=== PATIENT | female | born 1975 | race Asian ===

== ENCOUNTER 2017-04-09 06:47 | Inpatient (IN) | payer BC ==
[2017-04-09] VITALS (35 sets, daily range): BP systolic 99–138; BP diastolic 59–101; PULSE 65–158; RESP 0–18; TEMP 97.8–99.9; O2SAT 98
[~2017-04-09] VITALS: Ht 162.6 cm; Wt 63.0 kg
[2017-04-09] MEDS ORDERED: LACTATED RINGER'S 1000 ML INJ 1,000 ML IV PRN (07:28)
[2017-04-09] MEDS ORDERED: LACTATED RINGER'S 1000 ML INJ 1,000 ML IV SCH (07:28)
[2017-04-09] MEDS ORDERED: OXYTOCIN 30 UNITS-500ML PREMIX 500 ML IV ONE (07:30)
[2017-04-09] MEDS ORDERED: MINERAL OIL 10 ML VIAL TOPICAL PRN (07:30)
[2017-04-09] MEDS ORDERED: CITRIC ACID-SODIUM CITRATE LIQ 30 ML UDC PO SCH (07:30)
[2017-04-09] MEDS ORDERED: SODIUM CHLORID 0.9% 500 ML INJ 500 ML IV PRN (07:30)
[2017-04-09] MEDS ORDERED: LIDOCAINE HCL 1% 50 ML VIAL I-DERMAL PRN (07:30)
[2017-04-09] MEDS ORDERED: LIDOCAINE HCL 1% 50 ML VIAL INFIL PRN (07:30)
--- NOTE | 2017-04-09 07:34 | HHI.HP ---
HPI Chief Complaint Water broke and tray Date Seen: Apr 09, 2017 Time Seen: 07:15 Travel History International Travel<30 Days: No Contact w/Intl Traveler<30Days: No Known Affected Area: No History of Present Illness HPI 41-year-old female [address] Khoury presents complaining of her water breaking this morning and the patient contractions began on the way to the hospital. Denies bleeding. heart rate tracing is reactive and she is tray every 3 minutes. Her amnio sure is positive this morning Weeks Gestation: 38 Para: 2 : 3 History Obstetric History Obstetric History 2 vaginal deliveries Social History Alcohol Use: No Tobacco Use: No Substance Abuse: No Allergies-Medications (Allergen,Severity, Reaction): Coded Allergies: No Known Allergies (Unverified , 04/09/17) Review of Systems General / Constitutional: No: Fever, Weight Gain, Chills, Other Eyes: No: Diploplia, Blurred Vision, Visual changes, Pain, Photophobia HENT: No: Headaches, Vertigo, Lightheadedness Cardiovascular: No: Irregular Rhythm, Chest Pain or Discomfort, Palpitations, Tachycardia, Syncope, Varicosities, Edema, Cyanosis Respiratory: No: Cough, Short of Breath, Other Gastrointestinal: No: Nausea, Vomiting, Diarrhea Genitourinary: No: Decreased Urinary Output, Oliguria Musculoskeletal: No: Limited ROM, Weakness, Cramping, Edema, Pain Skin: No Rash, No Itching, No Dryness, No Lumps, No Change in Pigmentation, No Change in Nails, No Alopecia, No Lesions Neurologic: No: Weakness, Dizziness, Syncope, Focal Abnormalities, Coordination Problem, Headache, Slurred Speech, Seizures Psychiatric: No: Depression, Suicidal Ideations, Homicidal Ideation Endocrine: No: Heat Intolerance, Cold Intolerance, Polydipsia, Polyuria, Other Physical Exam Narrative GENERAL: Well-nourished, well-developed patient. SKIN: Warm and dry. HEAD: Normocephalic and atraumatic. EYES: No scleral icterus. No injection or drainage. ENT: No nasal drainage noted. Mucous membranes pink. Airway patent. NECK: Supple, trachea midline. No JVD. CARDIOVASCULAR: Regular rate and rhythm without murmurs, gallops, or rubs. RESPIRATORY: Breath sounds equal bilaterally. No accessory muscle use. BREASTS: Bilateral exam showed no masses , no retractions, no nipple discharge. ABDOMEN/GI: Abdomen soft, non-tender, bowel sounds present, no rebound, no guarding Gravid to [-38] weeks size Fundal Height: [-38] GENITOURINARY: External Genitalia: intact and normal in appearance BUS glands: [-] Cervix: [post-] Dilatation: [-4-5] Effacement: [90-] Station: [-2] Presentation: [vtx-] Membranes: [ ruptured] Uterine Contractions: [q 3 min-] FHT's: Category: [-1] Baseline: [122-] Reactive: [R-] Variability: [-mod] Decels: [-none] EXTREMITIES: No cyanosis or edema. BACK: Nontender without obvious deformity. No CVA tenderness. NEUROLOGICAL: Awake and alert. Motor and sensory grossly within normal limits. Five out of 5 muscle strength in all muscle groups. Normal speech. Caprini VTE Risk Assessment Caprini VTE Risk Assessment: No/Low Risk (score <= 1) Caprini Risk Assessment Model Point Value = 1 Point Value = 2 Point Value = 3 Point Value = 5 Age 41-60 Minor surgery BMI > 25 kg/m2 Swollen legs Varicose veins or History of unexplained or recurrent spontaneous Oral contraceptives or hormone replacement Sepsis (< 1 month) Serious lung disease, including pneumonia (< 1 month) Abnormal pulmonary function Acute myocardial infarction Congestive heart failure (< 1 month) History of inflammatory bowel disease Medical patient at bed rest Age 61-74 Arthroscopic surgery Major open surgery (> 45 min) Laparoscopic surgery (> 45 min) Malignancy Confined to bed (> 72 hours) Immobilizing plaster cast Central venous access Age >= 75 History of VTE Family history of VTE Factor V Leiden Prothrombin [id number] Lupus anticoagulant Anticardiolipin antibodies Elevated serum homocysteine Heparin-induced thrombocytopenia Other congenital or acquired thrombophilia Stroke (< 1 month) Elective arthroplasty Hip, pelvis, or leg fracture Acute spinal cord injury (< 1 month) Prophylaxis Regimen Total Risk Factor Score Risk Level Prophylaxis Regimen 0-1 Low Early ambulation 2 Moderate Order ONE of the following: *Sequential Compression Device (SCD) *Heparin 5000 units SQ BID 3-4 Higher Order ONE of the following medications: *Heparin 5000 units SQ TID *Enoxaparin/Lovenox 40 mg SQ daily (WT < 150 kg, CrCl > 30 mL/min) *Enoxaparin/Lovenox 30 mg SQ daily (WT < 150 kg, CrCl > 10-29 mL/min) *Enoxaparin/Lovenox 30 mg SQ BID (WT < 150 kg, CrCl > 30 mL/min) AND/OR *Sequential Compression Device (SCD) 5 or more Highest Order ONE of the following medications: *Heparin 5000 units SQ TID (Preferred with Epidurals) *Enoxaparin/Lovenox 40 mg SQ daily (WT < 150 kg, CrCl > 30 mL/min) *Enoxaparin/Lovenox 30 mg SQ daily (WT < 150 kg, CrCl > 10-29 mL/min) *Enoxaparin/Lovenox 30 mg SQ BID (WT < 150 kg, CrCl > 30 mL/min) AND *Sequential Compression Device (SCD) Data Data Orders Orders Ob (2e) Additional Admit Info (04/09/17 07:27) Admit To Inpatient (04/09/17 ) Vital Signs (Adult) .Per protocol (04/09/17 07:28) Heart (04/09/17 07:28) Amnioinfusion (04/09/17 07:28) Urinary Catheter Management .ONCE (04/09/17 07:28) Lactated Ringer's 1000 Ml Inj (Lr 1000 M (04/09/17 07:28) Lactated Ringer's 1000 Ml Inj (Lr 1000 M (04/09/17 07:28) Sodium Chlorid 0.9% 500 Ml Inj (Ns 500 M (04/09/17 07:30) Sodium Chlor 0.9% 1000 Ml Inj (Ns 1000 M (04/09/17 07:48) Lidocaine 1% Inj (50 Ml) (Xylocaine 1% I (04/09/17 07:30) Citric Acid-Sodium Citrate Liq (Bicitra (04/09/17 07:30) Fentanyl Inj (Fentanyl Inj) (04/09/17 07:30) Fentanyl Inj (Fentanyl Inj) (04/09/17 07:30) Penicillin G Potassium Inj (Pfizerpen-G (04/09/17 07:30) Penicillin G Potassium Inj (Pfizerpen-G (04/09/17 11:30) Complete Blood Count With Diff (04/09/17 07:28) Hold Clot (04/09/17 07:28) Abo/Rh Blood Type (04/09/17 07:28) Urinalysis - C+S If Indicated (04/09/17 07:28) Drug Screen, Random Urine (04/09/17 07:28) Resp Oxygen Non Rebreathe Mask (04/09/17 ) ^ Epidural / Intrathecal Infus (04/09/17 07:28) Oxytocin 30 Units-500ml Premix (Pitocin (04/09/17 07:30) Lidocaine 1% Inj (50 Ml) (Xylocaine 1% I (04/09/17 07:30) Light Mineral Oil (Muri-Lube Oil) (04/09/17 07:30) Group B Strep: Positive Assessment/Plan Assessment and Plan Patient is 41-year-old female 38 weeks presents with gross ruptured membranes and early labor, cervix 4-5 cm 90% -2 vertex, amnio sure is positive. heart tones are reactive she is tray regularly. Patient sees Dr. Khoury for care and we will notify the [facility] maori liaison adviser physician. Cortez Patel II, MD Apr 09, 2017 07:34
[2017-04-09] MEDS ORDERED: SODIUM CHLOR 0.9% 1000 ML INJ 1,000 ML IV PRN (07:48)
[2017-04-09] MEDS ORDERED: PENICILLIN G POTASSIUM INJ 5,000,000 UNITS in SODIUM CHLORIDE 0.9% INJ 100 ML IV ONE (08:00)
[2017-04-09 08:31] LABS: AUTOMATED NEUTROPHIL # 4.8 TH/MM3 (1.8-7.7); BASOPHIL % 0.7 % (0.0-2.0); EOSINOPHIL # 0.1 TH/MM3 (0-0.4); EOSINOPHIL % 1.8 % (0.0-4.0); HEMATOCRIT 40.3 % (35.0-46.0); LYMPH % 11.2 % (9.0-44.0); LYMPHOCYTE # 0.7 TH/MM3 (1.0-4.8); MEAN CELL VOLUME 91.7 FL (80.0-100.0); MEAN CORPUSCULAR HEMOGLOBIN 31.8 PG (27.0-34.0); MEAN CORPUSCULAR HGB CONC 34.7 % (32.0-36.0); MEAN PLATELET VOLUME 8.9 FL (7.0-11.0); MONO % 6.6 % (0.0-8.0); MONOCYTE # 0.4 TH/MM3 (0-0.9); NEUT % 79.7 % (16.0-70.0); PLATELET COUNT 161 TH/MM3 (150-450); RED BLOOD COUNT 4.39 MIL/MM3 (4.00-5.30); RED CELL DISTRIBUTION WIDTH 14.7 % (11.6-17.2)
[2017-04-09 08:36] LABS: BACTERIA, URINE RARE /hpf; BILIRUBIN, URINE NEG (NEG); BLOOD, URINE TRACE (NEG); GLUCOSE,URINE NEG (NEG); KETONE, URINE NEG (NEG); MUCUS URINE FEW /lpf (OCC); NITRITE,URINE NEG (NEG); SQUAMOUS EPITHELIAL CELL URINE 1 /hpf (0-5); URINE COLOR YELLOW (YELLW/STRAW); URINE LEUKOCYTE ESTERASE NEG (NEG)
[2017-04-09] MEDS ORDERED: fentaNYL 2MCG-BUPIV 0.125% INJ 100 ML ONE (08:55)
[2017-04-09] MEDS ORDERED: ePHEDrine/NS 25 MG/5 ML SYRINGE ONE (08:56)
--- NOTE | 2017-04-09 11:08 | PD.OB.DELI ---
Weeks gestation: 38 Anesthesia: Epidural Episiotomy: None Vaginal Delivery: Normal Presentation: Occiput anterior, Compound (left hand) Nuchal Cord: None Delayed cord clamping (45 sec): Yes : Female Delivery date: Apr 09, 2017 Delivery time: 10:49 One Minute : 8 Five Minute : 9 Placenta: Spontaneous delivery, Intact, 3 vessel cord Laceration: Perineal laceration, 2 deg Repair: Chromic running Estimated blood loss: 100 mL Additional Information uncomplicated delivery of healthy female Ramya Suero MD Apr 09, 2017 11:08
[2017-04-09] MEDS ORDERED: SODIUM CHLORIDE 0.9% FLUSH 10 ML FLUSH IV FLUSH PRN (11:15)
[2017-04-09] MEDS ORDERED: OXYTOCIN 30 UNITS-500ML PREMIX 500 ML IV SCH (11:15)
[2017-04-09] MEDS ORDERED: BENZOCAINE 20% TOPICAL SPRAY 60 ML CAN TOPICAL PRN (11:15)
[2017-04-09] MEDS ORDERED: SODIUM CHLORIDE 0.9% FLUSH 10 ML FLUSH IV FLUSH SCH (11:15)
[2017-04-09] MEDS ORDERED: oxyCODONE/ACETAMINOPHEN 5 MG/325 MG TAB PO PRN ×2 (11:15)
[2017-04-09] MEDS ORDERED: DOCUSATE SODIUM 50 MG/SENNA 8.6 MG TAB PO PRN (11:15)
[2017-04-09] MEDS ORDERED: ONDANSETRON ODT 4 MG TAB PO PRN (11:15)
[2017-04-09] MEDS ORDERED: WITCH HAZEL 50%/GLYCERIN 12.5% 40 PAD JAR TOPICAL PRN (11:15)
[2017-04-09] MEDS ORDERED: ACETAMINOPHEN 325 MG TAB PO PRN (11:15)
[2017-04-09] MEDS ORDERED: IBUPROFEN 800 MG TAB PO PRN (11:15)
[2017-04-09] MEDS ORDERED: ALUMINUM/MAGNESIUM/SIMETH 30 ML CUP PO PRN (11:30)
[2017-04-09] MEDS ORDERED: ePHEDrine/NS 25 MG/5 ML SYRINGE IV PUSH PRN (11:45)
[2017-04-09] MEDS ORDERED: NO SYSTEM NARCOTICS PRN (11:45)
[2017-04-09] MEDS ORDERED: fentaNYL 2MCG-BUPIV 0.125% 100 ML EPIDURAL SCH (11:45)
[2017-04-09] MEDS ORDERED: DO NOT ADMINISTER ANTICOAGULANTS PRN (11:45)
[2017-04-09] MEDS ORDERED: PENICILLIN G POTASSIUM INJ 2,500,000 UNITS in SODIUM CHLORIDE 0.9% INJ 100 ML IV SCH (12:00)
[2017-04-09] MEDS ORDERED: MISOPROSTOL 200 MCG TAB ONE (12:51)
--- NOTE | 2017-04-09 12:56 | HHI.PR ---
Subjective Remarks OBHG The patient is a 41-year-old para 3003 status post at 10:49 AM today. She has had several episodes of uterine hypertonia and increased vaginal bleeding. I was asked by Dr. Casey to assess the patient. Upon entry into the patient's room, I introduced myself and explained the need for further evaluation due to continued bleeding. Per report, the patient has had 3 episodes of bleeding, but continues to bleed more than expected with hypotonic uterus. After obtaining verbal consent from the patient and examination was performed and the lower uterine segment was swept of approximately 200 cc blood and clots. After this point the uterus became firm at U -2. The patient is given 1000 g of Cytotec rectally and Methergine 0.2 mg IM. Discussed with Dr. Suero , will continue Methergine 0.2 mg by mouth every 6 hours 24 hours and check CBC in the a.m. Objective Vital Signs Date Time Temp Pulse Resp B/P (MAP) Pulse Ox O2 Delivery O2 Flow Rate FiO2 04/09/17 12:15 65 116/70 (85) 04/09/17 12:01 81 129/89 (102) 04/09/17 11:45 69 110/76 (87) 04/09/17 11:30 75 112/69 (83) 04/09/17 11:30 16 04/09/17 11:15 98.2 04/09/17 11:15 0 04/09/17 11:15 158 114/78 (90) 04/09/17 11:14 82 126/61 (82) 04/09/17 11:00 91 125/101 (109) 04/09/17 10:30 65 116/73 (87) 04/09/17 10:15 68 109/74 (86) 04/09/17 10:00 73 109/62 (78) 04/09/17 09:45 67 129/74 (92) 04/09/17 09:45 97.8 04/09/17 09:45 67 04/09/17 09:43 68 117/88 (98) 04/09/17 09:40 72 04/09/17 09:36 78 04/09/17 09:35 70 04/09/17 09:31 75 104/65 (78) 04/09/17 09:30 74 04/09/17 09:25 72 113/62 (79) 04/09/17 09:25 70 04/09/17 09:22 69 112/64 (80) 04/09/17 09:20 107 04/09/17 09:20 68 99/82 (88) 04/09/17 09:16 69 113/65 (81) 04/09/17 09:15 79 04/09/17 09:13 76 134/83 (100) 04/09/17 09:10 72 04/09/17 09:07 74 138/80 (99) 04/09/17 09:06 76 04/09/17 07:36 67 138/78 (98) Result Diagram: 04/09/17 0820 Jessy Donohue MD Apr 09, 2017 12:56
[2017-04-09] MEDS ORDERED: MISOPROSTOL 200 MCG TAB RECTAL ONE (13:00)
[2017-04-09] MEDS ORDERED: METHYLERGONOVINE MALEATE 0.2 MG/ML VIAL IM ONE (13:00)
[2017-04-09] MEDS: METHYLERGONOVINE MALEATE 0.2 MG TAB PO SCH ×2 (13:23→18:32)
[2017-04-09] MEDS ORDERED: DIPHTH/TETANUS/ACEL PERTUSSIS (BOOSTER) 0.5 ML VIAL/PFS IM ONE (16:00)
[2017-04-09] MEDS ORDERED: MEASLES, MUMPS, RUBELLA VACCINE 0.5 ML VIAL SQ ONE (16:00)
[2017-04-09] MEDS ORDERED: ZOLPIDEM TARTRATE 5 MG TAB PO PRN (21:00)
[2017-04-10] MEDS: METHYLERGONOVINE MALEATE 0.2 MG TAB PO SCH ×2 (00:54→05:26)
[2017-04-10 05:52] LABS: HEMATOCRIT 35.6 % (35.0-46.0); HEMOGLOBIN 12.3 GM/DL (11.6-15.3); MEAN CELL VOLUME 91.7 FL (80.0-100.0); MEAN CORPUSCULAR HEMOGLOBIN 31.6 PG (27.0-34.0); MEAN CORPUSCULAR HGB CONC 34.4 % (32.0-36.0); MEAN PLATELET VOLUME 8.8 FL (7.0-11.0); PLATELET COUNT 118 TH/MM3 (150-450); RED BLOOD COUNT 3.88 MIL/MM3 (4.00-5.30); RED CELL DISTRIBUTION WIDTH 14.3 % (11.6-17.2); WHITE BLOOD COUNT 10.1 TH/MM3 (4.0-11.0)
[2017-04-10 08:00] VITALS: BP 120/79; PULSE 64; RESP 16; TEMP 97.6; O2SAT 98
--- NOTE | 2017-04-10 08:47 | HHI.OB ---
Subjective Post Day: 1 Remarks misoprostol 1000microgram given yesterday, followed by 24 hours of methergine in progress for pp bleeding. Objective Vitals/I&O Vital Signs Date Time Temp Pulse Resp B/P (MAP) Pulse Ox O2 Delivery O2 Flow Rate FiO2 04/10/17 08:00 64 16 120/79 (93) 04/10/17 08:00 97.6 98 04/09/17 20:00 98.0 76 18 122/65 (84) 98 04/09/17 16:00 99.9 76 18 108/64 (79) 04/09/17 14:30 98.2 04/09/17 14:30 68 18 128/62 (84) 04/09/17 13:29 98.1 04/09/17 13:15 90 137/83 (101) 04/09/17 13:01 69 133/59 (83) 04/09/17 12:45 97 129/82 (98) 04/09/17 12:30 69 120/72 (88) 04/09/17 12:15 65 116/70 (85) 04/09/17 12:01 81 129/89 (102) 04/09/17 11:45 69 110/76 (87) 04/09/17 11:30 75 112/69 (83) 04/09/17 11:30 16 04/09/17 11:15 98.2 04/09/17 11:15 0 04/09/17 11:15 158 114/78 (90) 04/09/17 11:14 82 126/61 (82) 04/09/17 11:00 91 125/101 (109) 04/09/17 10:30 65 116/73 (87) 04/09/17 10:15 68 109/74 (86) 04/09/17 10:00 73 109/62 (78) 04/09/17 09:45 67 129/74 (92) 04/09/17 09:45 97.8 04/09/17 09:45 67 04/09/17 09:43 68 117/88 (98) 04/09/17 09:40 72 04/09/17 09:36 78 04/09/17 09:35 70 04/09/17 09:31 75 104/65 (78) 04/09/17 09:30 74 1/29/18 09:25 72 113/62 (79) 04/09/17 09:25 70 04/09/17 09:22 69 112/64 (80) 04/09/17 09:20 107 04/09/17 09:20 68 99/82 (88) 04/09/17 09:16 69 113/65 (81) 04/09/17 09:15 79 04/09/17 09:13 76 134/83 (100) 04/09/17 09:10 72 04/09/17 09:07 74 138/80 (99) 04/09/17 09:06 76 Objective Remarks GENERAL: Well-nourished, well-developed patient. CARDIOVASCULAR: Regular rate and rhythm without murmurs, gallops, or rubs. RESPIRATORY: Breath sounds equal bilaterally. No accessory muscle use. ABDOMEN/GI: Abdomen soft, non-tender. Fundus: Firm, non-tender at umbilicus. GENITOURINARY: Light to moderate bleeding. EXTREMITIES: No cyanosis or edema, non-tender, without signs of DVT. Medications and IVs Current Medications Medications (Trade) Dose Ordered Sig/Thea Route Start Time Stop Time Status Last Admin (NS Flush) 2 ml BID IV FLUSH 04/09/17 11:15 04/09/17 11:15 (NS Flush) 2 ml UNSCH PRN IV FLUSH 04/09/17 11:15 (Tylenol) 650 mg Q4H PRN PO 04/09/17 11:15 (Motrin) 800 mg Q8H PRN PO 04/09/17 11:15 04/09/17 21:11 (Percocet 5-325 Mg) 1 tab Q4H PRN PO 04/09/17 11:15 (Percocet 5-325 Mg) 2 tab Q4H PRN PO 04/09/17 11:15 (Americaine 20% Top Spr) 1 spray Q4H PRN TOPICAL 04/09/17 11:15 04/09/17 17:56 (Tucks Pads) 1 applic QID PRN TOPICAL 04/09/17 11:15 04/09/17 17:56 (Bonnie-Colace) 2 tab Q12H PRN PO 04/09/17 11:15 (Ambien) 5 mg HS PRN PO 04/09/17 21:00 (Mag-Al Plus Susp Liq) 15 ml Q8H PRN PO 04/09/17 11:30 (Zofran Odt) 4 mg Q6H PRN PO 04/09/17 11:15 Miscellaneous Information No systemic narcotics to be given except... UNSCH PRN .XX 04/09/17 11:45 04/10/17 11:44 Miscellaneous Information DO NOT ADMINISTER ANY ANTICOAGUL... UNSCH PRN .XX 04/09/17 11:45 04/10/17 11:44 Fentanyl/ Bupivacaine HCl 100 ml @ 0 mls/hr TITRATE EPIDURAL 04/09/17 11:45 (ePHEDrine/NS 25 MG/5 ML SYR) 10 mg UNSCH PRN IV PUSH 04/09/17 11:45 04/10/17 11:44 04/09/17 12:02 Assessment/Plan Assessment and Plan PPD 1 s/p PPH- miso, Methergine. Hgb stable, vitals stable PP- continue routine supportive care Dispo- home ppd 2 Kusum Lundberg MD Apr 10, 2017 08:47
[2017-04-10 20:00] VITALS: BP 108/75; PULSE 74; RESP 16; TEMP 97.8; O2SAT 99
[2017-04-11 08:00] VITALS: BP 113/64; PULSE 66; RESP 14; TEMP 98
--- NOTE | 2017-04-11 08:47 | HHI.OB ---
Subjective Post Day: 2 Remarks doing great ready for discharge Objective Vitals/I&O Vital Signs Date Time Temp Pulse Resp B/P (MAP) Pulse Ox O2 Delivery O2 Flow Rate FiO2 04/11/17 08:00 98.0 04/11/17 08:00 66 14 113/64 (80) 04/10/17 20:00 97.8 74 16 99 04/10/17 20:00 108/75 (86) Objective Remarks GENERAL: Well-nourished, well-developed patient. CARDIOVASCULAR: Regular rate and rhythm without murmurs, gallops, or rubs. RESPIRATORY: Breath sounds equal bilaterally. No accessory muscle use. ABDOMEN/GI: Abdomen soft, non-tender. Fundus: Firm, non-tender at umbilicus. GENITOURINARY: Light to moderate bleeding. EXTREMITIES: No cyanosis or edema, non-tender, without signs of DVT. Medications and IVs Current Medications Medications (Trade) Dose Ordered Sig/Thea Route Start Time Stop Time Status Last Admin (NS Flush) 2 ml BID IV FLUSH 04/09/17 11:15 04/09/17 11:15 (NS Flush) 2 ml UNSCH PRN IV FLUSH 04/09/17 11:15 (Tylenol) 650 mg Q4H PRN PO 04/09/17 11:15 (Motrin) 800 mg Q8H PRN PO 04/09/17 11:15 04/09/17 21:11 (Percocet 5-325 Mg) 1 tab Q4H PRN PO 04/09/17 11:15 (Percocet 5-325 Mg) 2 tab Q4H PRN PO 04/09/17 11:15 (Americaine 20% Top Spr) 1 spray Q4H PRN TOPICAL 04/09/17 11:15 04/09/17 17:56 (Tucks Pads) 1 applic QID PRN TOPICAL 04/09/17 11:15 04/09/17 17:56 (Bonnie-Colace) 2 tab Q12H PRN PO 04/09/17 11:15 (Ambien) 5 mg HS PRN PO 04/09/17 21:00 (Mag-Al Plus Susp Liq) 15 ml Q8H PRN PO 04/09/17 11:30 (Zofran Odt) 4 mg Q6H PRN PO 04/09/17 11:15 Fentanyl/ Bupivacaine HCl 100 ml @ 0 mls/hr TITRATE EPIDURAL 04/09/17 11:45 Assessment/Plan Assessment and Plan PPD 1 s/p PPH- miso, Methergine. Hgb stable, vitals stable PP- continue routine supportive care Dispo- home ppd 2 PPD 2 Hgb good uterus firm and ready for discharge Lisa Garcia MD Apr 11, 2017 08:47
--- NOTE | 2017-04-11 08:48 | HHI.DCPOC ---
Discharge Care Plan Report Symptoms to Your Doctor -Temperature above 100.5 degrees -Redness, of incision or excessive or foul smelling drainage -Unusual pain or calf pain -Increased vaginal bleeding -Painful or difficulty urinating -Feelings of extreme sadness or anxiety after 2 weeks Goals to Promote Your Health * To prevent worsening of your condition and complications * To maintain your health at the optimal level Directions to Meet Your Goals Take your medications as prescribed Follow your dietary instruction Follow activity as directed Ensure plenty of rest for recovery Drink fluids for hydration Keep your appointments as scheduled Take your immunizations and boosters as scheduled If your symptoms worsen call your PCP, if no PCP go to Urgent Care Center or Emergency Room Smoking is Dangerous to Your Health. Avoid second hand smoke Call the 24-hour crisis hotline for domestic abuse at Lisa Garcia MD Apr 11, 2017 08:48
== END 2017-04-11 11:13 | disposition home or self-care (01) | DRG 774 ==
LOC: HOBED 06:47 → H2EB 07:32 → H1EA 13:55
PROVIDERS: ADMIT Obstetrics & Gynecology; ATTEND Obstetrics & Gynecology
PROC: 10E0XZZ Delivery of Products of Conception, External Approach (ICD-10-PCS; principal; 2017-04-09)
PROC: 0KQM0ZZ Repair Perineum Muscle, Open Approach (ICD-10-PCS; 2017-04-09)
DX: O70.1 Second degree perineal laceration during delivery (principal); O72.1 Other immediate postpartum hemorrhage; Z37.0 Single live birth; O99.824 Streptococcus B carrier state complicating childbirth; Z3A.38 38 weeks gestation of pregnancy
CPT/HCPCS: 59025; 80307; 81001; 85025; 85027; 86900; 86901; 90715; J2210; J2540; J2590; J3010; J7120